=== PATIENT | male | born 1970 | race Caucasian/White ===

== ENCOUNTER 2017-02-21 18:30 | Emergency (ER) | payer BC, OTHER ==
[~2017-02-21 18:30] MED LIST: Z.0.NO CURRENT MEDS
[2017-02-21 18:32] VITALS: BP 134/82; PULSE 73; RESP 14; TEMP 98.8; O2SAT 99
--- NOTE | 2017-02-21 19:24 | PD ---
HPI Chief Complaint: Abdominal Pain Time Seen by Provider: 19:19 Travel History International Travel<30 days: No Contact w/Intl Traveler<30days: No Traveled to known affect area: No History of Present Illness HPI 47-year-old male presents to the emergency department complaint of epigastric pain that radiates to right and left upper quadrants 15 days. Has been seen at urgent care and had ultrasound, KUB, and labs which have been normal per the patient. He does say that the KUB was crushable for bowel obstruction based been having normal bowel movements and last bowel movement this morning that was normal. Has history of PUD in 2013. He denies fever, chills. Reports nausea without vomiting. Denies dysuria, hematuria. Denies hematemesis. Denies hematochezia. Reports the pain is constant and on fire, aching, and bloating. Rates pain 10/10. Pain is worse with sitting. No known relieving factors. Has tried Tums, Rolaids, Mylanta, Nexium, and Pepto-Bismol with no relief of symptoms. Denies history of abdominal surgeries. Reports occasional EtOH. Primary care provider is Dr. Oscar Mcginnis. Allergies to penicillin. No significant past medical history. No other modifying factors or associated signs and symptoms. PFSH Past Medical History Arthritis: No Autoimmune Disease: No Anxiety: Yes Depression: No Cancer: No Cardiovascular Problems: No Chemotherapy: No Cerebrovascular Accident: No Diminished Hearing: No Endocrine: No Genitourinary: No Headaches: Yes Musculoskeletal: Yes Neurologic: No Psychiatric: No Respiratory: Yes Radiation Therapy: No Seizures: No Past Surgical History Abdominal Surgery: Yes (HERNIA REPAIR) Other Surgery: Yes (ULCER CAUTERIZED) Social History Alcohol Use: Yes (SOCAILLY) Tobacco Use: No Substance Use: No Allergies-Medications (Allergen,Severity, Reaction): Coded Allergies: penicillin G (Unverified Allergy, Severe, 02/21/17) Reported Meds & Prescriptions Reported Meds & Active Scripts Active Carafate (Sucralfate) 1 Gram Tab 1 Gm PO QID On empty stomach Reported Multi-Vitamin Daily (Multiple Vitamin) 1 Tab Tab 1 Tab PO DAILY Nexium (Esomeprazole DR) 40 Mg Capdr 40 Mg PO DAILY Review of Systems Except as stated in HPI: all other systems reviewed are Neg Physical Exam Narrative GENERAL: Well-nourished, well-developed male patient, in no acute distress; afebrile; nontoxic appearing SKIN: Warm and dry. HEAD: Atraumatic. Normocephalic. EYES: Pupils equal and round. No scleral icterus. No injection or drainage. ENT: Mucosa pink and moist. Airway patent. NECK: Trachea midline. CARDIOVASCULAR: Regular rate and rhythm. No murmur appreciated. RESPIRATORY: No accessory muscle use. Clear to auscultation. Breath sounds equal bilaterally. GASTROINTESTINAL: Abdomen soft, I am unable to elicit tenderness on palpation of the abdomen, nondistended. Hepatic and splenic margins not palpable. Bowel sounds are active 4 quadrants. Nonrigid. No rebound tenderness. No guarding. BACK: No CVA tenderness. MUSCULOSKELETAL: No obvious deformities. No clubbing. No cyanosis. No edema. NEUROLOGICAL: Awake and alert. Oriented 3. No obvious cranial nerve deficits. Motor grossly within normal limits. Normal speech. PSYCHIATRIC: Appropriate mood and affect; insight and judgment normal. Data Data Last Documented VS Vital Signs Date Time Temp Pulse Resp B/P (MAP) Pulse Ox O2 Delivery O2 Flow Rate FiO2 02/21/17 18:32 98.8 73 14 134/82 (99) 99 Orders Orders Complete Blood Count With Diff (02/21/17 18:47) Comprehensive Metabolic Panel (02/21/17 18:47) Lipase (02/21/17 18:47) Prothrombin Time / Inr (Pt) (02/21/17 18:47) Act Partial Throm Time (Ptt) (02/21/17 18:47) Urinalysis - C+S If Indicated (02/21/17 18:47) Electrocardiogram (02/21/17 18:47) Iv Access Insert/Monitor (02/21/17 20:04) Sodium Chlor 0.9% 1000 Ml Inj (Ns 1000 M (02/21/17 20:04) Sodium Chloride 0.9% Flush (Ns Flush) (02/21/17 20:15) Pantoprazole Inj (Protonix Inj) (02/21/17 20:15) Dicyclomine (Bentyl) (02/21/17 20:15) Ed Discharge Order (02/21/17 20:47) Sucralfate (Carafate) (02/21/17 21:00) Labs Laboratory Tests Test 11/13/17 19:15 White Blood Count 8.0 TH/MM3 Red Blood Count 4.73 MIL/MM3 Hemoglobin 13.9 GM/DL Hematocrit 40.8 % Mean Corpuscular Volume 86.3 FL Mean Corpuscular Hemoglobin 29.3 PG Mean Corpuscular Hemoglobin Concent 33.9 % Red Cell Distribution Width 13.0 % Platelet Count 146 TH/MM3 Mean Platelet Volume 9.6 FL Neutrophils (%) (Auto) 59.6 % Lymphocytes (%) (Auto) 24.5 % Monocytes (%) (Auto) 9.5 % Eosinophils (%) (Auto) 5.6 % Basophils (%) (Auto) 0.8 % Neutrophils # (Auto) 4.8 TH/MM3 Lymphocytes # (Auto) 2.0 TH/MM3 Monocytes # (Auto) 0.8 TH/MM3 Eosinophils # (Auto) 0.4 TH/MM3 Basophils # (Auto) 0.1 TH/MM3 CBC Comment DIFF FINAL Differential Comment Prothrombin Time 10.5 SEC Prothromb Time International Ratio 1.0 RATIO Activated Partial Thromboplast Time 26.8 SEC Urine Color LIGHT-YELLOW Urine Turbidity CLEAR Urine pH 5.5 Urine Specific Blanch 1.010 Urine Protein NEG mg/dL Urine Glucose (UA) NEG mg/dL Urine Ketones NEG mg/dL Urine Occult Blood NEG Urine Nitrite NEG Urine Bilirubin NEG Urine Urobilinogen LESS THAN 2.0 MG/DL Urine Leukocyte Esterase NEG Urine RBC 1 /hpf Urine WBC LESS THAN 1 /hpf Microscopic Urinalysis Comment CULT NOT INDICATED Blood Urea Nitrogen 16 MG/DL Creatinine 1.11 MG/DL Random Glucose 95 MG/DL Total Protein 7.2 GM/DL Albumin 3.8 GM/DL Calcium Level 8.7 MG/DL Alkaline Phosphatase 59 U/L Aspartate Amino Transf (AST/SGOT) 37 U/L Alanine Aminotransferase (ALT/SGPT) 36 U/L Total Bilirubin 0.6 MG/DL Sodium Level 139 MEQ/L Potassium Level 3.9 MEQ/L Chloride Level 103 MEQ/L Carbon Dioxide Level 27.7 MEQ/L Anion Gap 8 MEQ/L Estimat Glomerular Filtration Rate 71 ML/MIN Lipase 157 U/L [facility] Medical Decision Making Medical Screen Exam Complete: Yes Emergency Medical Condition: Yes Medical Record Reviewed: Yes Differential Diagnosis Gastritis, peptic ulcer disease, GERD Narrative Course 47-year-old male with history of PUD with epigastric pain. Patient had prior KUB and abdominal ultrasound at urgent care on Tuesday, which per the patient was normal with questionable bowel obstruction. Patient reports normal bowel movements without hematochezia. I am unable to elicit any abdominal pain on exam. The patient was discussed with Dr. Diaz and she agrees with plan of care and outpatient follow-up. CBC, CMP, lipase, urinalysis ordered in triage. IV fluids, Bentyl, Protonix ordered. 2043: CBC, CMP, lipase, urinalysis, coags unremarkable. Instructed patient to follow up with gastroenterology. Carafate prescribed for home. Instructed patient to follow up with primary care provider. Patient verbalizes understanding and agreement with treatment plan. Patient is medically cleared and stable for discharge. Discussed reasons to return to the emergency department. Patient agrees with treatment plan. The patients vital signs are stable and the patient is stable for outpatient follow-up and treatment. Patient discharged home, stable and in no acute distress. Diagnosis Primary Impression: Abdominal pain Qualified Codes: R10.13 - Epigastric pain Referrals: Family Practice Doctor Primary Care Physician Patient Instructions: Abdominal Pain (ED), General Instructions, Peptic Ulcer ( ED) Additional Instructions: Carafate as prescribed Follow-up with reed or wind instrument tuner Follow-up with primary care provider Return to the emergency department immediately with worsening of symptoms, particularly as discussed Med/Other Pt SpecificInfo: Prescription(s) given Scripts Hydrocodone-Acetaminophen (Rogers) 5 Mg-325 Mg Tab 1 TAB PO Q4H Y for PAIN, #12 TAB 0 Refills Prov: Mary Hernández 02/21/17 Sucralfate (Carafate) 1 Gram Tab 1 GM PO QID for Ulcer Prevention, #120 TAB 0 Refills On empty stomach Prov: Mary Hernández 02/21/17 Disposition: DISCHARGE HOME Condition: Stable Mary Hernández Feb 21, 2017 19:24
[2017-02-21] MEDS ORDERED: SODIUM CHLOR 0.9% 1000 ML INJ 1,000 ML IV SCH (20:04)
[2017-02-21 20:10] LABS: BLOOD, URINE NEG (NEG); COMMENT (UR) CULT NOT INDICATED; CULTURE IF INDICATED CULT NOT INDICATED; GLUCOSE,URINE NEG (NEG); KETONE, URINE NEG (NEG); NITRITE,URINE NEG (NEG); PH, URINE 5.5 (5.0-8.5); URINE COLOR LIGHT-YELLOW (YELLW/STRAW)
[2017-02-21] MEDS ORDERED: SODIUM CHLORIDE 0.9% FLUSH 10 ML FLUSH IV FLUSH PRN (20:15)
[2017-02-21] MEDS ORDERED: PANTOPRAZOLE SODIUM 40 MG VIAL IV PUSH ONE (20:15)
[2017-02-21] MEDS ORDERED: DICYCLOMINE HCL 10 MG CAP PO ONE (20:15)
--- NOTE | 2017-02-21 20:16 | PD ---
Physical Exam Date Seen by Provider: Feb 21, 2017 Narrative This patient presents with a 15 day history of epigastric pain. Data Data Last Documented VS Vital Signs Date Time Temp Pulse Resp B/P (MAP) Pulse Ox O2 Delivery O2 Flow Rate FiO2 02/21/17 18:32 98.8 73 14 134/82 (99) 99 Orders Orders Complete Blood Count With Diff (02/21/17 18:47) Comprehensive Metabolic Panel (02/21/17 18:47) Lipase (02/21/17 18:47) Prothrombin Time / Inr (Pt) (02/21/17 18:47) Act Partial Throm Time (Ptt) (02/21/17 18:47) Urinalysis - C+S If Indicated (02/21/17 18:47) Electrocardiogram (02/21/17 18:47) Iv Access Insert/Monitor (02/21/17 20:04) Sodium Chlor 0.9% 1000 Ml Inj (Ns 1000 M (02/21/17 20:04) Sodium Chloride 0.9% Flush (Ns Flush) (02/21/17 20:15) Pantoprazole Inj (Protonix Inj) (02/21/17 20:15) Dicyclomine (Bentyl) (02/21/17 20:15) Labs Laboratory Tests Test 02/21/17 19:15 Urine Color LIGHT-YELLOW Urine Turbidity CLEAR Urine pH 5.5 Urine Specific Spearman 1.010 Urine Protein NEG mg/dL Urine Glucose (UA) NEG mg/dL Urine Ketones NEG mg/dL Urine Occult Blood NEG Urine Nitrite NEG Urine Bilirubin NEG Urine Urobilinogen LESS THAN 2.0 MG/DL Urine Leukocyte Esterase NEG Urine RBC 1 /hpf Urine WBC LESS THAN 1 /hpf Microscopic Urinalysis Comment CULT NOT INDICATED MDM Supervised Visit with ANDRAE: Yes Narrative Course I, Dr. Diaz, have reviewed the advance practice practitioner's documentation and am in agreement, met with the patient face to face, made the diagnosis, and the medical decision making was done by me. *My assessment and Findings: The patient appears well-hydrated. I am unable to elicit any tenderness to palpation of his abdomen. Please see Mary Hernández NP's note for results of laboratory and radiographic evaluation, ED course, final diagnosis and disposition Dilia Diaz MD Feb 21, 2017 20:16
[2017-02-21 20:17] LABS: AUTOMATED NEUTROPHIL # 4.8 TH/MM3 (1.8-7.7); BASOPHIL # 0.1 TH/MM3 (0-0.2); BASOPHIL % 0.8 % (0.0-2.0); EOSINOPHIL # 0.4 TH/MM3 (0-0.4); EOSINOPHIL % 5.6 % (0.0-4.0); HEMATOCRIT 40.8 % (39.0-51.0); HEMO FLAGS DIFF FINAL; LYMPH % 24.5 % (9.0-44.0); MEAN CELL VOLUME 86.3 FL (80.0-100.0); MEAN CORPUSCULAR HEMOGLOBIN 29.3 PG (27.0-34.0); MEAN CORPUSCULAR HGB CONC 33.9 % (32.0-36.0); MONO % 9.5 % (0.0-8.0); NEUT % 59.6 % (16.0-70.0); PLATELET COUNT 146 TH/MM3 (150-450); RED BLOOD COUNT 4.73 MIL/MM3 (4.50-5.90)
[2017-02-21 20:26] LABS: ANION GAP 8 MEQ/L (5-15); AST (GOT) 37 U/L (15-37); BICARBONATE 27.7 MEQ/L (21.0-32.0); BLOOD UREA NITROGEN 16 MG/DL (7-18); CHLORIDE 103 MEQ/L (98-107); GLOMERULAR FILTRATION RATE 71 ML/MIN (>89); POTASSIUM 3.9 MEQ/L (3.5-5.1); SODIUM (NA) 139 MEQ/L (136-145)
[2017-02-21 20:27] LABS: ALT (GPT) 36 U/L (12-78)
[2017-02-21 20:28] LABS: APTT (PATIENT) 26.8 SEC (24.3-30.1); PROTHROMBIN TIME - PATIENT 10.5 SEC (9.8-11.6)
[2017-02-21 20:30] LABS: ALKALINE PHOSPHATASE 59 U/L (45-117); TOTAL BILIRUBIN ADULT 0.6 MG/DL (0.2-1.0)
[2017-02-21] MEDS ORDERED: NEXI40CA PO (20:45)
[2017-02-21] MEDS ORDERED: MULT-65 PO (20:45)
[2017-02-21] MEDS ORDERED: CARA1TAB6 PO (20:46)
[2017-02-21] MEDS ORDERED: SUCRALFATE 1 GM TAB PO ONE (21:00)
[2017-02-21] MEDS ORDERED: NORC5TAB PO (21:01)
[2017-02-21 21:32] VITALS: BP 106/62
--- NOTE | 2017-02-22 14:18 | EKG ---
Date Performed: 02/21/2017 Time Performed: 19:07:17 PTAGE: 47 years EKG: Sinus rhythm WITH 2ND DEGREE AV BLOCK, MOBITZ TYPE II INCOMPLETE RIGHT BUNDLE BRANCH BLOCK ABNORMAL ECG PREVIOUS TRACING : 02/21/2017 19.06 Compared to prior tracing no significant change DOCTOR: Luis Covington Interpretating Date/Time 02/22/2017 14:12:42
== END 2017-02-21 23:31 | disposition home or self-care (01) ==
LOC: NEPD 18:30
DX: R10.13 Epigastric pain (principal); R94.31 Abnormal electrocardiogram [ECG] [EKG]
CPT/HCPCS: 80053; 81001; 83690; 85025; 85610; 85730; 93005; 96374; 99284; C9113; J7030